=== PATIENT | female | born 1940 | race Caucasian/White ===

== ENCOUNTER 2017-03-10 10:46 | Outpatient (CLI) | payer OTHER, MEDICARE ==
--- NOTE | 2017-03-10 11:39 | DIAGNOSTIC IMAGING REPORT ---
PROCEDURE: MG UNILATERAL DIAG-LT W/CAD INDICATION: 6-month follow-up left breast asymmetry. TECHNIQUE: CC, MLO and true-lateral digital views of the left breast. In addition, spot compression CC and MLO views were obtained of the upper outer left breast (region of clinical concern). COMPARISON: Compared to left mammogram and left breast ultrasound (09/16/2016), and screening mammogram (09/03/2016. FINDINGS: MAMMOGRAM: Computer-aided detection applied. Mildly dense normal parenchymal pattern. No evidence of mass or architectural distortion. IMPRESSION: 1. Negative left mammogram. 2. Resume routine screening schedule (June 2018). 3. Findings discussed with the patient RESULT CODE: 1- Negative. A. A negative report should not delay biopsy if a dominant or clinically suspicious mass is present. 10-15% of cancers are not identified by x-ray. B. A negative report may reinforce clinical impression. C. Adenosis and dense breasts may obscure an underlying neoplasm. D. False positive reports average 6-10%. E.. A yearly screening mammogram is recommended. A reminder letter will be scheduled.
== END 2017-03-10 23:00 ==
LOC: MAM SRH 10:46
DX: N64.89 Other specified disorders of breast (principal)